=== PATIENT | female | born 1965 | race African-American/Black ===

== ENCOUNTER 2017-05-11 16:03 | Emergency (ER) | payer OTHER ==
[2017-05-11] MEDS ORDERED: MORPHINE SULFATE 4 MG/ML SYRINGE IVP STA (16:27)
[2017-05-11] MEDS ORDERED: SODIUM CHLORIDE 0.9% 1,000 ML IV STA (16:27)
--- NOTE | 2017-05-11 16:32 | ED ---
Abdominal Pain HPI - General Chief Complaint: Abdominal Pain Stated Complaint: Abdominal pain Time Seen by Provider: 05/11/17 16:21 Source: patient Mode of arrival: EMS Limitations: no limitations - History of Present Illness Initial Comments: 52-year-old female patient with a past medical history significant for chronic low back pain, blindness, hypertension, and asthma presents to the emergency department today with complaints of lower abdominal pain and low back pain. Patient states that she has had this pain for the last couple of months. States that she feels it is getting worse. States that the pain is intermittent. She states that she is chronically constipated. She reports dysuria. She denies any nausea or vomiting. States today she has no appetite. She denies any fevers or chills. Patient denies any recent rash, shortness breath, chest pain, diarrhea, numbness, tingling, dizziness, weakness, urinary urgency, urinary frequency, headache, visual changes, or any other complaints. - Related Data Home Medications Medication Instructions Recorded Confirmed Acetaminophen Tab [Tylenol Tab] 650 mg PO Q4H PRN 05/11/17 05/11/17 Previous Rx's Medication Instructions Recorded Docusate [Colace] 100 mg PO BID #20 capsule 05/11/17 Sulfamethoxazole/Trimethoprim 1 each PO BID #20 tablet 05/11/17 [Bactrim DS 800-160 mg] Allergies Allergy/AdvReac Type Severity Reaction Status Date / Time grass pollen AdvReac Itching Verified 05/11/17 16:39 Review of Systems ROS Statement: Those systems with pertinent positive or pertinent negative responses have been documented in the HPI. ROS Other: All systems not noted in ROS Statement are negative. Past Medical History Past Medical History: Asthma, Hyperlipidemia, Hypertension Additional Past Medical History / Comment(s): pt is blind x 2yrs, chronic back pain, pt hx of smoking crack 4 months ago History of Any Multi-Drug Resistant Organisms: None Reported Past Surgical History: Section Additional Past Surgical History / Comment(s): c-sect x 4 Past Psychological History: Bipolar Smoking Status: Former smoker Past Alcohol Use History: None Reported Past Drug Use History: None Reported General Exam Limitations: physical limitation (Blindness) General appearance: alert, in no apparent distress, other (This is a thin appearing adult female patient in no acute distress. Vital signs upon presentation include temperature 97.7, pulse 90, respirations 18, blood pressure 147/91, pulse ox 97% on room air.) Eye exam: Present: normal appearance, EOMI. Absent: scleral icterus, conjunctival injection, periorbital swelling ENT exam: Present: normal exam, normal oropharynx, mucous membranes moist, other (Limited dentition) Respiratory exam: Present: normal lung sounds bilaterally. Absent: respiratory distress, wheezes, rales, rhonchi, stridor Cardiovascular Exam: Present: regular rate, normal rhythm, normal heart sounds. Absent: systolic murmur, diastolic murmur, rubs, gallop, clicks GI/Abdominal exam: Present: soft, tenderness (Lower abdominal tenderness, especially the right lower quadrant), normal bowel sounds. Absent: distended, guarding, rebound, rigid Neurological exam: Present: alert, oriented X3, CN II-XII intact Psychiatric exam: Present: normal affect, normal mood Skin exam: Present: warm, dry, intact, normal color. Absent: rash Course Vital Signs 05/11/17 05/11/17 05/11/17 16:05 19:28 19:42 Temperature 97.7 F 97.2 F L 97.8 F Pulse Rate 90 78 86 Respiratory 18 14 15 Rate Blood Pressure 147/91 116/62 151/84 O2 Sat by Pulse 97 98 98 Oximetry Medical Decision Making - Medical Decision Making 52-year-old female patient presented to the emergency department today for complaints of lower abdominal pain and lower back pain. Physical examination does reveal some mild suprapubic and right lower quadrant abdominal tenderness. Patient no CVA tenderness, did report however bilateral lumbar tenderness. Vital signs remained stable during stay. Labs reviewed and are unremarkable. Urinalysis did show cloudy appearance with 2+ protein, moderate blood, positive nitrite, large leukocyte esterase, 71 red blood cells, greater than 182 white blood cells, occasional bacteria, and many mucus. CT of the abdomen and pelvis was obtained due to patient having some right lower quadrant tenderness and did reveal bladder thickening consistent with urinary tract infection. There is no evidence of hydronephrosis or pyelonephritis. No evidence of appendicitis. Patient's x-ray of her abdomen did show stool throughout the colon. Patient does take pain medications chronically for lower back pain. We will discharge her with a prescription for Bactrim and Colace for constipation. She is instructed to follow-up with her primary care physician for recheck in 1-2 days. She is instructed to return here immediately for any new, worsening, or concerning symptoms. She verbalizes understanding and agrees with this plan. - Lab Data Result diagrams: 05/11/17 16:05 05/11/17 16:05 Lab Results 05/11/17 05/11/17 05/11/17 Range/Units 16:05 16:05 16:05 WBC 6.3 (3.8-10.6) k/uL RBC 4.03 (3.80-5.40) m/uL Hgb 12.6 (11.4-16.0) gm/dL Hct 39.8 (34.0-46.0) % MCV 98.8 (80.0-100.0) fL MCH 31.4 (25.0-35.0) pg MCHC 31.8 (31.0-37.0) g/dL RDW 12.3 (11.5-15.5) % Plt Count 226 (150-450) k/uL Neutrophils % 71 % Lymphocytes % 21 % Monocytes % 4 % Eosinophils % 2 % Basophils % 1 % Neutrophils # 4.5 (1.3-7.7) k/uL Lymphocytes # 1.3 (1.0-4.8) k/uL Monocytes # 0.2 (0-1.0) k/uL Eosinophils # 0.1 (0-0.7) k/uL Basophils # 0.0 (0-0.2) k/uL PT (9.0-12.0) sec INR (<1.2) APTT (22.0-30.0) sec Sodium 146 H (137-145) mmol/L Potassium 3.9 (3.5-5.1) mmol/L Chloride 105 (98-107) mmol/L Carbon Dioxide 30 (22-30) mmol/L Anion Gap 11 mmol/L BUN 21 H (7-17) mg/dL Creatinine 0.90 (0.52-1.04) mg/dL Est GFR (MDRD) Af Amer >60 (>60 ml/min/1.73 sqM) Est GFR (MDRD) Non-Af >60 (>60 ml/min/1.73 sqM) Glucose 87 (74-99) mg/dL Plasma Lactic Acid Daniel (0.7-2.0) mmol/L Calcium 9.6 (8.4-10.2) mg/dL Total Bilirubin 0.5 (0.2-1.3) mg/dL AST 14 (14-36) U/L ALT 21 (9-52) U/L Alkaline Phosphatase 45 (38-126) U/L Total Creatine Kinase 31 (30-135) U/L CK-MB (CK-2) 0.3 (0.0-2.4) ng/mL CK-MB (CK-2) Rel Index 1.0 Troponin I <0.012 (0.000-0.034) ng/mL Total Protein 7.1 (6.3-8.2) g/dL Albumin 3.8 (3.5-5.0) g/dL Amylase 52 (30-110) U/L Lipase 67 (23-300) U/L Urine Color Urine Appearance (Clear) Urine pH (5.0-8.0) Ur Specific [place] (1.001-1.035) Urine Protein (Negative) Urine Glucose (UA) (Negative) Urine Ketones (Negative) Urine Blood (Negative) Urine Nitrite (Negative) Urine Bilirubin (Negative) Urine Urobilinogen (<2.0) mg/dL Ur Leukocyte Esterase (Negative) Urine RBC (0-5) /hpf Urine WBC (0-5) /hpf Urine Bacteria (None) /hpf Urine Mucus (None) /hpf 05/11/17 05/11/17 05/11/17 Range/Units 16:05 16:05 16:50 WBC (3.8-10.6) k/uL RBC (3.80-5.40) m/uL Hgb (11.4-16.0) gm/dL Hct (34.0-46.0) % MCV (80.0-100.0) fL MCH (25.0-35.0) pg MCHC (31.0-37.0) g/dL RDW (11.5-15.5) % Plt Count (150-450) k/uL Neutrophils % % Lymphocytes % % Monocytes % % Eosinophils % % Basophils % % Neutrophils # (1.3-7.7) k/uL Lymphocytes # (1.0-4.8) k/uL Monocytes # (0-1.0) k/uL Eosinophils # (0-0.7) k/uL Basophils # (0-0.2) k/uL PT 11.3 (9.0-12.0) sec INR 1.2 H (<1.2) APTT 24.5 (22.0-30.0) sec Sodium (137-145) mmol/L Potassium (3.5-5.1) mmol/L Chloride (98-107) mmol/L Carbon Dioxide (22-30) mmol/L Anion Gap mmol/L BUN (7-17) mg/dL Creatinine (0.52-1.04) mg/dL Est GFR (MDRD) Af Amer (>60 ml/min/1.73 sqM) Est GFR (MDRD) Non-Af (>60 ml/min/1.73 sqM) Glucose (74-99) mg/dL Plasma Lactic Acid Daniel 0.9 (0.7-2.0) mmol/L Calcium (8.4-10.2) mg/dL Total Bilirubin (0.2-1.3) mg/dL AST (14-36) U/L ALT (9-52) U/L Alkaline Phosphatase (38-126) U/L Total Creatine Kinase (30-135) U/L CK-MB (CK-2) (0.0-2.4) ng/mL CK-MB (CK-2) Rel Index Troponin I (0.000-0.034) ng/mL Total Protein (6.3-8.2) g/dL Albumin (3.5-5.0) g/dL Amylase (30-110) U/L Lipase (23-300) U/L Urine Color Yellow Urine Appearance Cloudy H (Clear) Urine pH 6.0 (5.0-8.0) Ur Specific [place] 1.024 (1.001-1.035) Urine Protein 2+ H (Negative) Urine Glucose (UA) Negative (Negative) Urine Ketones Negative (Negative) Urine Blood Moderate H (Negative) Urine Nitrite Positive H (Negative) Urine Bilirubin Negative (Negative) Urine Urobilinogen 4.0 (<2.0) mg/dL Ur Leukocyte Esterase Large H (Negative) Urine RBC 71 H (0-5) /hpf Urine WBC >182 H (0-5) /hpf Urine Bacteria Occasional H (None) /hpf Urine Mucus Many H (None) /hpf - EKG Data -: EKG Interpreted by Hi EKG Comments: EKG obtained at 1638 shows normal sinus rhythm with a ventricular rate of 80, CT interval 146, QRS duration 72, QT 374, QTC 431. Reading is somewhat limited by artifact. - Radiology Data Radiology results: report reviewed, image reviewed Two supine views of the abdomen were obtained, scattered gas is seen in nondistended small bowel loops. Gas and fecal material seen in nondistended colon. Mild amount of stools noted in the ascending colon. There is no visceromegaly, pneumoperitoneum, or abnormal calcification appreciated. The lung bases are clear and osseous structures are intact. Impression by Dr. Combs shows mild stool in the ascending colon. CT of the abdomen and pelvis with contrast was obtained, report was reviewed in its entirety. Impression by Dr. Combs shows urinary bladder demonstrates diffuse enhancement along the inner wall. The urinary bladder wall is also thickened. Urinalysis and correlation for urinary tract infection is recommended. Otherwise no significant findings are identified and a CT examination. Disposition Clinical Impression: Urinary tract infection, Abdominal pain Disposition: HOME SELF-CARE Condition: Good Instructions: Urinary Tract Infection in Women (ED), Abdominal Pain (ED) Additional Instructions: Complete antibiotic prescription in full. Follow-up with your primary care physician for recheck in 1-2 days. Take stool softeners as needed for constipation. Return immediately if you develop any fever, chills, or vomiting. Return here immediately for any other new, worsening, or concerning symptoms. Prescriptions: Docusate [Colace] 100 mg PO BID #20 capsule Sulfamethoxazole/Trimethoprim [Bactrim DS 800-160 mg] 1 each PO BID #20 tablet Referrals: None,Stated [Primary Care Provider] - 1-2 days Time of Disposition: 19:09
[2017-05-11 16:39] LABS: Basophils % (A) 1 %; Eosinophils # (A) 0.1 k/uL (0-0.7); Eosinophils % (A) 2 %; HCT 39.8 % (34.0-46.0); HGB 12.6 gm/dL (11.4-16.0); Lymphocytes # (A) 1.3 k/uL (1.0-4.8); Lymphocytes % (A) 21 %; MCH 31.4 pg (25.0-35.0); MCHC 31.8 g/dL (31.0-37.0); MCV 98.8 fL (80.0-100.0); Mean Platelet Volume 7.3; Monocytes # (A) 0.2 k/uL (0-1.0); Monocytes % (A) 4 %; Neutrophils # (A) 4.5 k/uL (1.3-7.7); Neutrophils % (A) 71 %; Platelet Count 226 k/uL (150-450); RBC 4.03 m/uL (3.80-5.40); RDW 12.3 % (11.5-15.5); WBC 6.3 k/uL (3.8-10.6)
[2017-05-11 16:48] LABS: INR 1.2 (<1.2); Partial Thromboplastin Time 24.5 sec (22.0-30.0); Prothrombin Time 11.3 sec (9.0-12.0)
[2017-05-11 16:49] LABS: ALT 21 U/L (9-52); AST 14 U/L (14-36); Albumin 3.8 g/dL (3.5-5.0); Alkaline Phosphatase 45 U/L (38-126); Amylase 52 U/L (30-110); Anion Gap 11 mmol/L; Blood Urea Nitrogen 21 mg/dL (7-17); Calcium 9.6 mg/dL (8.4-10.2); Carbon Dioxide 30 mmol/L (22-30); Chloride 105 mmol/L (98-107); Glucose 87 mg/dL (74-99); Lipase 67 U/L (23-300); Potassium 3.9 mmol/L (3.5-5.1); Sodium 146 mmol/L (137-145); Total Bilirubin 0.5 mg/dL (0.2-1.3); Total Protein 7.1 g/dL (6.3-8.2)
[2017-05-11 17:01] LABS: Creatine Kinase 31 U/L (30-135)
[2017-05-11 17:11] LABS: Appearance,Urine Cloudy (Clear); Bacteria,Urine Occasional /hpf; Bilirubin,Urine Negative (Negative); Blood,Urine Moderate (Negative); Color,Urine Yellow; Glucose,Urine (UA) Negative (Negative); Ketones,Urine Negative (Negative); Leukocyte Esterase,Urine Large (Negative); Mucus,Urine Many /hpf; Nitrite,Urine Positive (Negative); Protein,Urine 2+ (Negative); RBC,Urine 71 /hpf (0-5); Specific Gravity,Urine 1.024 (1.001-1.035); WBC,Urine >182 /hpf (0-5)
[2017-05-11 17:13] LABS: Creatine Kinase MB 0.3 ng/mL (0.0-2.4); Troponin I <0.012 ng/mL (0.000-0.034)
[2017-05-11] MEDS ORDERED: RX INFO: IV CONTRAST WAS GIVEN 1 EACH MISC MISCELLANE PRN (17:29)
--- NOTE | 2017-05-11 17:41 | XR ---
EXAMINATION TYPE: XR KUB DATE OF EXAM: 05/11/2017 5:27 PM CLINICAL HISTORY: Abdominal pain for 2 weeks. TECHNIQUE: 2 supine views the abdomen were obtained. COMPARISON: None. FINDINGS: Scattered gas is seen in non-distended small bowel loops. Gas and fecal material is seen in non-distended colon. Mild amount of stool is noted in the ascending colon. There is no visceromegaly , pneumoperitoneum, or abnormal calcification appreciated. The lung bases are clear and the osseous s tructures are intact. IMPRESSION: Mild stool in ascending colon.
--- NOTE | 2017-05-11 18:21 | CT ---
EXAMINATION TYPE: CT abdomen pelvis w con DATE OF EXAM: 05/11/2017 COMPARISON: NONE HISTORY: Generalized abdominal pain. CT DLP: 397.2 mGycm Automated exposure control for dose reduction was used. TECHNIQUE: Helical acquisition of images was performed from the lung bases through the pelvis. CONTRAST: Performed without Oral Contrast and with IV Contrast, patient injected with 100 mL of Omnipaque 300. FINDINGS: LUNG BASES: No significant abnormality is appreciated. LIVER/GB: No significant abnormality is appreciated. PANCREAS: No significant abnormality is seen. SPLEEN: No significant abnormality is seen. ADRENALS: No significant abnormality is seen. KIDNEYS: No significant abnormality is seen. 2 cm cortical cyst is identified superior pole left kidn ey. FREE AIR: No free air is visualized. RETROPERITONEAL ADENOPATHY: None visualized REPRODUCTIVE ORGANS: No significant abnormality is seen URINARY BLADDER: Appendix is visualized, and is normal. The inner lining of the urinary bladder demo nstrates diffuse enhancement. Urinary bladder wall is also thickened measuring 1 cm in width. PELVIC ADENOPATHY: None visualized. OSSEOUS STRUCTURES: No significant abnormality is seen. BOWEL: No significant abnormality is seen. IMPRESSION: URINARY BLADDER DEMONSTRATES DIFFUSE ENHANCEMENT ALONG ITS INNER WALL. THE URINARY BLADDER WALL IS AL SO THICKENED. URINALYSIS AND CORRELATION FOR URINARY TRACT INFECTION IS RECOMMENDED. OTHERWISE NO SIGNIFICANT FINDINGS ARE IDENTIFIED ON THIS CT EXAMINATION.
[2017-05-11] MEDS ORDERED: cefTRIAXone IN SWFI 1,000 MG/10 ML SYRINGE IVP STA (18:46)
[2017-05-11 19:42] VITALS: BP 151/84; PULSE 86; RESP 15; TEMP 97.8
== END 2017-05-11 20:12 | disposition home or self-care (01) ==
LOC: EC 16:03
DX: N39.0 Urinary tract infection, site not specified (principal); M54.5 Low back pain; Z87.891 Personal history of nicotine dependence; Z91.09 Other allergy status, other than to drugs and biological substances
CPT/HCPCS: 36415; 93005; 80053; 82150; 82550; 82553; 83605; 83690; 84484; 85025; 85610; 85730; 81001; 87086; 74018; 74177; 99285; 96374; 51701; 96375; 96361; J2270; J0696; Q9967; 87077; 87186

== ENCOUNTER 2018-01-15 11:00 | Emergency (ER) | payer OTHER ==
[2018-01-15 11:09] VITALS: RESP 18
[2018-01-15] MEDS ORDERED: SODIUM CHLORIDE 0.9% 1,000 ML IV STA (11:30)
--- NOTE | 2018-01-15 11:51 | ED ---
Abdominal Pain HPI - General Chief Complaint: Abdominal Pain Stated Complaint: lump on stomach & dizziness Time Seen by Provider: 01/15/18 11:21 Source: patient, RN notes reviewed, old records reviewed Mode of arrival: wheelchair Limitations: no limitations - History of Present Illness Initial Comments: Patient is a 52-year-old female presents emergency Department stating when of abdominal pain. Patient reports that she's had trouble having a bowel movement. She is recently treated for urinary tract infection. She finished antibiotics yesterday. Patient is blind. She here is here with his daughter. Patient has had no recent fevers or chills. She also complains of episodes of dizziness. He has had episodes of vomiting. - Related Data Home Medications Medication Instructions Recorded Confirmed Artificial Tears-Hypromellose 1 drop BOTH EYES DAILY 01/15/18 01/15/18 [Artificial Tear Drops] Aspirin 81 mg PO DAILY 01/15/18 01/15/18 Fluconazole [Diflucan] 150 mg PO ONCE 01/15/18 01/15/18 Lisinopril 40 mg PO DAILY 01/15/18 01/15/18 Multivitamins, Thera [Multivitamin 1 tab PO DAILY 01/15/18 01/15/18 (formulary)] SUMAtriptan SUCCINATE [Imitrex] 25 mg PO Q2HR 01/15/18 01/15/18 amLODIPine [Norvasc] 5 mg PO DAILY 01/15/18 01/15/18 Previous Rx's Medication Instructions Recorded Docusate [Colace] 100 mg PO BID #20 capsule 05/11/17 Sulfamethoxazole/Trimethoprim 1 each PO BID #20 tablet 05/11/17 [Bactrim DS 800-160 mg] Docusate [Colace] 100 mg PO BID #20 capsule 01/15/18 Allergies Allergy/AdvReac Type Severity Reaction Status Date / Time No Known Allergies Allergy Unverified 01/15/18 11:19 Review of Systems ROS Statement: Those systems with pertinent positive or pertinent negative responses have been documented in the HPI. ROS Other: All systems not noted in ROS Statement are negative. Past Medical History Past Medical History: Asthma, Hyperlipidemia, Hypertension Additional Past Medical History / Comment(s): pt is blind x 2yrs, chronic back pain, pt hx of smoking crack 4 months ago History of Any Multi-Drug Resistant Organisms: None Reported Past Surgical History: Section Additional Past Surgical History / Comment(s): c-sect x 4 Past Psychological History: Bipolar Smoking Status: Former smoker Past Alcohol Use History: None Reported Past Drug Use History: None Reported General Exam - General Exam Comments Initial Comments: Is a 52-year-old female. Alert and oriented 3. Patient appears in no significant distress. Limitations: no limitations General appearance: alert, in no apparent distress Head exam: Present: atraumatic, normocephalic, normal inspection Eye exam: Present: normal appearance, PERRL, EOMI. Absent: scleral icterus, conjunctival injection, periorbital swelling ENT exam: Present: normal exam, mucous membranes moist Neck exam: Present: normal inspection. Absent: tenderness, meningismus, lymphadenopathy Respiratory exam: Present: normal lung sounds bilaterally. Absent: respiratory distress, wheezes, rales, rhonchi, stridor Cardiovascular Exam: Present: regular rate, normal rhythm, normal heart sounds. Absent: systolic murmur, diastolic murmur, rubs, gallop, clicks GI/Abdominal exam: Present: soft Extremities exam: Present: normal inspection, full ROM, normal capillary refill. Absent: tenderness, pedal edema, joint swelling, calf tenderness Back exam: Present: normal inspection Neurological exam: Present: alert, oriented X3, CN II-XII intact Psychiatric exam: Present: normal affect, normal mood Course Vital Signs 01/15/18 01/15/18 01/15/18 11:06 12:30 13:00 Temperature 97.7 F Pulse Rate 120 H 98 Respiratory 18 18 18 Rate Blood Pressure 124/86 102/87 119/78 O2 Sat by Pulse 99 98 Oximetry 01/15/18 01/15/18 01/15/18 13:30 14:00 16:53 Temperature 97.3 F L Pulse Rate 104 H 111 H 102 H Respiratory 18 18 18 Rate Blood Pressure 117/92 105/78 109/74 O2 Sat by Pulse 98 99 100 Oximetry Medical Decision Making - Medical Decision Making This patient's 52-year-old female with past medical history of drug abuse presents today with constipation and abdominal pain. Patient has had a history of constipation for the past few days. Patient is generally does take Dulcolax. Recently treated for urinary tract infection with antibiotics today. Stress emergency department somewhat dehydrated. Given IV fluids labwork obtained. Labwork was reviewed and unremarkable. EKG shows no acute changes. Chest x-ray shows evidence of chronic emphysema changes. There is evidence of a right upper lobe apical nodule. Patient states she did have a previous lung biopsy. Likely related to her lung finding. Also KUB shows no evidence of obstructive bowel gas pattern. At this time Patient case discussed with Dr. Esqueda. He also examined the Patient recommended giving the Patient enema to help with constipation. Patient reports relief with symptoms after BM. Patient advised to follow up with PCP. - Lab Data Result diagrams: 01/15/18 11:45 01/15/18 11:45 Lab Results 01/15/18 01/15/18 01/15/18 Range/Units 11:45 11:45 11:45 WBC 6.2 (3.8-10.6) k/uL RBC 4.25 (3.80-5.40) m/uL Hgb 13.4 (11.4-16.0) gm/dL Hct 42.4 (34.0-46.0) % MCV 99.7 (80.0-100.0) fL MCH 31.6 (25.0-35.0) pg MCHC 31.7 (31.0-37.0) g/dL RDW 12.5 (11.5-15.5) % Plt Count 337 (150-450) k/uL Neutrophils % 74 % Lymphocytes % 18 % Monocytes % 6 % Eosinophils % 1 % Basophils % 0 % Neutrophils # 4.6 (1.3-7.7) k/uL Lymphocytes # 1.1 (1.0-4.8) k/uL Monocytes # 0.4 (0-1.0) k/uL Eosinophils # 0.0 (0-0.7) k/uL Basophils # 0.0 (0-0.2) k/uL PT (9.0-12.0) sec INR (<1.2) APTT (22.0-30.0) sec Sodium 137 (137-145) mmol/L Potassium 5.1 (3.5-5.1) mmol/L Chloride 100 (98-107) mmol/L Carbon Dioxide 28 (22-30) mmol/L Anion Gap 9 mmol/L BUN 26 H (7-17) mg/dL Creatinine 1.32 H (0.52-1.04) mg/dL Est GFR (CKD-EPI)AfAm 53 (>60 ml/min/1.73 sqM) Est GFR (CKD-EPI)NonAf 46 (>60 ml/min/1.73 sqM) Glucose 96 (74-99) mg/dL Calcium 10.0 (8.4-10.2) mg/dL Magnesium 1.8 (1.6-2.3) mg/dL Total Bilirubin 0.4 (0.2-1.3) mg/dL AST 30 (14-36) U/L ALT 19 (9-52) U/L Alkaline Phosphatase 44 (38-126) U/L Total Creatine Kinase 62 (30-135) U/L CK-MB (CK-2) 1.2 (0.0-2.4) ng/mL CK-MB (CK-2) Rel Index 1.9 Troponin I <0.012 (0.000-0.034) ng/mL Total Protein 8.5 H (6.3-8.2) g/dL Albumin 4.4 (3.5-5.0) g/dL Amylase 98 (30-110) U/L Lipase 118 (23-300) U/L Urine Color Urine Appearance (Clear) Urine pH (5.0-8.0) Ur Specific [place] (1.001-1.035) Urine Protein (Negative) Urine Glucose (UA) (Negative) Urine Ketones (Negative) Urine Blood (Negative) Urine Nitrite (Negative) Urine Bilirubin (Negative) Urine Urobilinogen (<2.0) mg/dL Ur Leukocyte Esterase (Negative) 01/15/18 01/15/18 Range/Units 12:45 13:50 WBC (3.8-10.6) k/uL RBC (3.80-5.40) m/uL Hgb (11.4-16.0) gm/dL Hct (34.0-46.0) % MCV (80.0-100.0) fL MCH (25.0-35.0) pg MCHC (31.0-37.0) g/dL RDW (11.5-15.5) % Plt Count (150-450) k/uL Neutrophils % % Lymphocytes % % Monocytes % % Eosinophils % % Basophils % % Neutrophils # (1.3-7.7) k/uL Lymphocytes # (1.0-4.8) k/uL Monocytes # (0-1.0) k/uL Eosinophils # (0-0.7) k/uL Basophils # (0-0.2) k/uL PT 10.8 (9.0-12.0) sec INR 1.1 (<1.2) APTT 23.9 (22.0-30.0) sec Sodium (137-145) mmol/L Potassium (3.5-5.1) mmol/L Chloride (98-107) mmol/L Carbon Dioxide (22-30) mmol/L Anion Gap mmol/L BUN (7-17) mg/dL Creatinine (0.52-1.04) mg/dL Est GFR (CKD-EPI)AfAm (>60 ml/min/1.73 sqM) Est GFR (CKD-EPI)NonAf (>60 ml/min/1.73 sqM) Glucose (74-99) mg/dL Calcium (8.4-10.2) mg/dL Magnesium (1.6-2.3) mg/dL Total Bilirubin (0.2-1.3) mg/dL AST (14-36) U/L ALT (9-52) U/L Alkaline Phosphatase (38-126) U/L Total Creatine Kinase (30-135) U/L CK-MB (CK-2) (0.0-2.4) ng/mL CK-MB (CK-2) Rel Index Troponin I (0.000-0.034) ng/mL Total Protein (6.3-8.2) g/dL Albumin (3.5-5.0) g/dL Amylase (30-110) U/L Lipase (23-300) U/L Urine Color Yellow Urine Appearance Clear (Clear) Urine pH 5.5 (5.0-8.0) Ur Specific [place] 1.021 (1.001-1.035) Urine Protein Negative (Negative) Urine Glucose (UA) Negative (Negative) Urine Ketones Negative (Negative) Urine Blood Negative (Negative) Urine Nitrite Negative (Negative) Urine Bilirubin Negative (Negative) Urine Urobilinogen 2.0 (<2.0) mg/dL Ur Leukocyte Esterase Negative (Negative) 01/15/18 15:50 EKG shows sinus tachycardia 112 bpm. Otherwise normal EKG noted. Ventricular rate of 112 ms. Urine reveals 1:30 milliseconds. QRS duration 74 ms. QT QTc is 314/420 ms. - Radiology Data Radiology results: report reviewed Overall nonobstructive bowel gas pattern. Dermal lesion on prior CT anterior wall of left breast. Correlate clinically male junk follow-up. Chest x-ray shows chronic emphysema upper lung fibrotic and parenchymal changes without acute process. Correlation with outside chest x-ray denies. No study available contrast enhanced CT considered for further evaluation this week and a right apical nodule not excluded. Disposition Clinical Impression: Constipation Disposition: HOME SELF-CARE Condition: Good Instructions: Constipation (ED) Additional Instructions: Patient advised to follow-up with primary care provider. Return to emergency department if any alarming signs or symptoms occur. Take the Colace as directed. Increase fruits and vegetables in her diet. Prescriptions: Docusate [Colace] 100 mg PO BID #20 capsule Is patient prescribed a controlled substance at d/c from ED?: No Referrals: Nonstaff,Physician [Primary Care Provider] - 1-2 days Time of Disposition: 16:22
[2018-01-15 12:29] LABS: Basophils % (A) 0 %; Eosinophils % (A) 1 %; HCT 42.4 % (34.0-46.0); HGB 13.4 gm/dL (11.4-16.0); Lymphocytes # (A) 1.1 k/uL (1.0-4.8); Lymphocytes % (A) 18 %; MCH 31.6 pg (25.0-35.0); MCHC 31.7 g/dL (31.0-37.0); MCV 99.7 fL (80.0-100.0); Mean Platelet Volume 6.9; Monocytes # (A) 0.4 k/uL (0-1.0); Monocytes % (A) 6 %; Neutrophils # (A) 4.6 k/uL (1.3-7.7); Neutrophils % (A) 74 %; Platelet Count 337 k/uL (150-450); RBC 4.25 m/uL (3.80-5.40); RDW 12.5 % (11.5-15.5); WBC 6.2 k/uL (3.8-10.6)
--- NOTE | 2018-01-15 12:49 | XR ---
EXAMINATION TYPE: XR chest 2V DATE OF EXAM: 01/15/2018 COMPARISON: NONE HISTORY: Weakness TECHNIQUE: Frontal and lateral views of the chest are obtained. FINDINGS: There is asymmetric moderate apical pleural thickening with right basilar scarlike opacity . There is some bilateral hilar retraction suggesting upper lung volume loss. Trachea is deviated to right of midline. The cardiac silhouette size is within normal limits. The osseous structures are i ntact. IMPRESSION: Favor chronic emphysematous and upper lungs fibrotic or parenchymal change without acute pulmonary process. Correlation with old outside chest x-ray is advised. If no such study is availabl e, contrast enhanced chest CT should be considered to further evaluate as spiculated right apical nod ule cannot be excluded.
[2018-01-15 12:55] LABS: Albumin 4.4 g/dL (3.5-5.0); Magnesium 1.8 mg/dL (1.6-2.3); Potassium 5.1 mmol/L (3.5-5.1); Total Bilirubin 0.4 mg/dL (0.2-1.3); Total Protein 8.5 g/dL (6.3-8.2)
--- NOTE | 2018-01-15 12:56 | XR ---
EXAMINATION TYPE: XR KUB DATE OF EXAM: 01/15/2018 12:38 PM CLINICAL HISTORY: Pain from left-sided lump. TECHNIQUE: Two Upright KUB images of the abdomen are obtained. COMPARISON: Abdominal x-ray and CT abdomen and pelvis from May 11, 2017. FINDINGS: Scattered gas is seen in non-distended small bowel loops. Gas and fecal material is seen in non-distended colon. No pneumoperitoneum is evident. Lung bases are clear. No suspicious calcificati ons are seen. Osseous structures are intact. IMPRESSION: Overall nonobstructive bowel gas pattern. Dermal-based lesion is partially imaged on prio r CT anterior wall left breast. Correlate clinically to help determine follow-up.
[2018-01-15 13:00] LABS: Creatine Kinase 62 U/L (30-135)
[2018-01-15 13:12] LABS: Creatine Kinase MB 1.2 ng/mL (0.0-2.4); Troponin I <0.012 ng/mL (0.000-0.034)
[2018-01-15 13:19] LABS: INR 1.1 (<1.2); Partial Thromboplastin Time 23.9 sec (22.0-30.0); Prothrombin Time 10.8 sec (9.0-12.0)
[2018-01-15 14:18] LABS: Appearance,Urine Clear (Clear); Bilirubin,Urine Negative (Negative); Blood,Urine Negative (Negative); Color,Urine Yellow; Glucose,Urine (UA) Negative (Negative); Ketones,Urine Negative (Negative); Leukocyte Esterase,Urine Negative (Negative); Nitrite,Urine Negative (Negative); PH, Urine 5.5 (5.0-8.0); Protein,Urine Negative (Negative); Specific Gravity,Urine 1.021 (1.001-1.035)
[2018-01-15 16:55] VITALS: BP 109/74; PULSE 102; TEMP 97.3
== END 2018-01-15 16:55 | disposition home or self-care (01) ==
LOC: EC 11:00
DX: K59.00 Constipation, unspecified (principal); E86.0 Dehydration; J43.9 Emphysema, unspecified; J84.10 Pulmonary fibrosis, unspecified; L98.9 Disorder of the skin and subcutaneous tissue, unspecified; R00.0 Tachycardia, unspecified; R91.1 Solitary pulmonary nodule; R11.10 Vomiting, unspecified; H54.7 Unspecified visual loss; I10 Essential (primary) hypertension; G89.29 Other chronic pain; Z87.891 Personal history of nicotine dependence; Z79.82 Long term (current) use of aspirin; Z79.899 Other long term (current) drug therapy
CPT/HCPCS: 36415; 71046; 74018; 80053; 81003; 82150; 82550; 82553; 83690; 83735; 84484; 85025; 85610; 85730; 93005; 96360; 96361; 99284